=== PATIENT | female | born 2000 | race African-American/Black ===

== ENCOUNTER 2021-12-20 10:55 | Emergency (ER) | payer OTHER ==
[~2021-12-20] VITALS: Ht 167.6 cm; Wt 66.0 kg
[2021-12-20 11:14] VITALS: BP 140/96
[2021-12-20] MEDS ORDERED: ACETAMINOPHEN 325MG TABLET PO STA (12:54)
[2021-12-20] MEDS ORDERED: VISCOUS LIDOCAINE 2% 15 ML UDC PO STA (12:54)
[2021-12-20] MEDS ORDERED: MAGNESIUM/ALUMINUM HYDROXIDE/SIMETHICONE 30ML UDC PO STA (12:54)
[2021-12-20] MEDS ORDERED: ONDANSETRON 4MG ODT PO ONE (13:00)
[2021-12-20] MEDS ORDERED: FAMOTIDINE 20MG TABLET PO ONE (13:00)
[2021-12-20 15:23] LABS: CHLORIDE 108 mEq/L (98-107)
[2021-12-20 15:24] LABS: HEMATOCRIT. 43.3 % (36.0-48.0); MEAN CORPUSCULAR HEMOGLOBIN 28.7 pg (28.0-32.0); MEAN CORPUSCULAR VOLUME 88.6 fL (81.0-99.0); MEAN PLATELET VOLUME 9.1 fl (7.4-10.4); PLATELET 263 x1000/uL (130-400); RED BLOOD CELL COUNT 4.89 mill/uL (4.2-5.4); RED CELL DISTRIBUTION WIDTH 14.4 % (11.6-14.6)
[2021-12-20 15:40] LABS: HCG SCREEN NEGATIVE
[2021-12-20 15:43] LABS: ETHANOL BLOOD < 10 mg/dL
[2021-12-20] MEDS ORDERED: FAMO-135 PO (15:48)
[2021-12-20 17:35] LABS: PLATELET ESTIMATE NORMAL
== END 2021-12-20 16:45 | disposition left against medical advice (07) ==
LOC: ER 10:55
DX: R10.13 Epigastric pain (principal)
CPT/HCPCS: 36415; 76700; 80053; 80320; 81025; 83690; 84703; 85025; 99284; Q0162; G0480

== ENCOUNTER 2023-09-26 16:48 | Emergency (ER) | payer OTHER ==
[~2023-09-26] VITALS: Ht 165.1 cm; Wt 65.0 kg
[~2023-09-26 16:48] MED LIST: FAMO-135 PO
[2023-09-26] MEDS: LORAZEPAM 1MG TABLET PO ONE (17:15)
[2023-09-26 17:20] LABS: CLARITY URINE CLEAR (CLEAR); COLOR URINE YELLOW (YELLOW); GLUCOSE URINE NEGATIVE (NEGATIVE); KETONES URINE NEGATIVE (NEGATIVE); LEUKOCYTE ESTERASE URINE NEGATIVE (NEGATIVE); NITRITE URINE NEGATIVE (NEGATIVE); OCCULT BLOOD URINE NEGATIVE (NEGATIVE); PH URINE 6.5 (4.5-8.0); PROTEIN URINE NEGATIVE (NEGATIVE); SPECIFIC GRAVITY URINE 1.005 (1.005-1.030); UROBILINOGEN URINE 0.2 E.U./dL (0.2-1.0)
[2023-09-26 17:28] LABS: *AMPHETAMINES SCREEN URINE NEGATIVE (NEGATIVE); *BARBITURATES SCREEN URINE NEGATIVE (NEGATIVE); *BENZODIAZEPINES SCREEN URINE NEGATIVE (NEGATIVE); *COCAINE SCREEN URINE NEGATIVE (NEGATIVE); CANNABINOID URINE SCREEN PRESUMPTIVE POSITIVE (NEGATIVE); ECSTASY MDMA SCREEN URINE NEGATIVE (NEGATIVE); METHADONE URINE SCREEN NEGATIVE (NEGATIVE); OPIATES URINE SCREEN NEGATIVE (NEGATIVE); PHENCYCLIDINE URINE SCREEN NEGATIVE (NEGATIVE)
[2023-09-26] MEDS: HALOPERIDOL LACTATE 5MG/ML VIAL IM ONE (18:15)
[2023-09-26] MEDS: DIPHENHYDRAMINE 50MG/ML VIAL IM ONE (18:15)
[2023-09-26] MEDS: LORAZEPAM 2MG/ML INJ IM ONE (18:15)
[2023-09-26 18:30] LABS: BASOPHILS % 0.3 % (0.0-2.0); EOSINOPHILS % 0.2 % (0.0-5.0); HEMATOCRIT. 41.5 % (36.0-48.0); HEMOGLOBIN. 13.9 g/dL (12.0-16.0); LYMPHOCYTES % 23.6 % (20.0-50.0); MEAN CORPUSCULAR HGB CONC 33.6 g/dL (31.0-37.0); MEAN CORPUSCULAR VOLUME 89.5 fL (81.0-99.0); MEAN PLATELET VOLUME 8.8 fl (7.4-10.4); NEUTROPHILS % 71.9 % (40.0-76.0); PLATELET 267 x1000/uL (130-400); RED BLOOD CELL COUNT 4.64 mill/uL (4.2-5.4); RED CELL DISTRIBUTION WIDTH 13.4 % (11.6-14.6); WHITE BLOOD COUNT 4.6 x1000/uL (4.5-11.0)
[2023-09-26 18:34] LABS: CHLORIDE 112 mEq/L (98-107); POTASSIUM 3.4 mEq/L (3.5-5.1); SODIUM 145 mEq/L (136-145)
[2023-09-26 18:35] LABS: CARBON DIOXIDE 21 mEq/L (21-32)
[2023-09-26 18:36] LABS: CALCIUM 9.1 mg/dL (8.7-10.4)
[2023-09-26 18:38] LABS: HCG SCREEN NEGATIVE
[2023-09-26 18:40] LABS: CREATININE 0.9 mg/dL (0.6-1.0); GLUCOSE 79 mg/dL (70-105)
[2023-09-26 18:41] LABS: ETHANOL BLOOD 253 mg/dL (<10); UREA NITROGEN BLOOD 6 mg/dL (9-23)
[2023-09-26 18:42] LABS: ACETAMINOPHEN < 2 ug/mL (10-30); ALANINE AMINOTRANSFERASE 12 IU/L (10-49); ALBUMIN 5.3 g/dL (3.2-4.8); ASPARTATE AMINOTRANSFERASE 18 IU/L (<34)
[2023-09-26 18:43] LABS: BILIRUBIN TOTAL 0.4 mg/dL (0.1-1.0)
[2023-09-26 18:46] LABS: THYROID STIMULATING HORMONE 1.15 uIU/mL (0.55-4.78)
[2023-09-26 19:00] VITALS: O2SAT 100
[2023-09-27 06:25] VITALS: BP 132/76; PULSE 98; RESP 16; TEMP 98.6
== END 2023-09-27 10:59 | disposition home or self-care (01) ==
LOC: ER 16:48
DX: R45.851 Suicidal ideations (principal); F10.129 Alcohol abuse with intoxication, unspecified; Z20.822 Contact with and (suspected) exposure to COVID-19; Y90.8 Blood alcohol level of 240 mg/100 ml or more
CPT/HCPCS: 80053; 80305; 81003; 81025; 80307; 80329; 80320; 84703; 84443; 85025; 36415; 93005; 96372; 99291; 87426; J1200; J1630; J2060; Z7610 ×2; G0480